=== PATIENT | male | born 1955 | race Caucasian/White ===

== ENCOUNTER 2020-03-06 06:54 | Inpatient (IN) ==
[2020-03-06] MEDS ORDERED: GLUCAGON 1 MG VIAL IM PRN (12:24)
[2020-03-06] MEDS ORDERED: DEXTROSE 50% 25 GM/50 ML VIAL IV PRN (12:24)
[2020-03-06] MEDS ORDERED: HEPARIN DRIP 25,000 UNITS/500 ML PREMIX IV SCH (13:00)
[2020-03-07] MEDS ORDERED: CHLORHEXIDINE 0.12% ORAL RINSE 60 ML BOTTLE SWISH/SPIT SCH (09:00)
[2020-03-07] MEDS: HEPARIN DRIP 25,000 UNITS/500 ML PREMIX IV SCH ×2 (15:05→22:20)
[2020-03-07] MEDS: CHLORHEXIDINE 0.12% ORAL RINSE 60 ML BOTTLE SWISH/SPIT SCH ×2 (15:05→21:05)
[2020-03-07 16:06] LABS: Basophils # 0.1 10*3/uL (0.0-0.2); Basophils % 1.2 % (0.0-0.8); Eosinophils # 0.5 10*3/uL (0.0-0.87); Eosinophils % 4.3 % (0.00-10.9); Hemoglobin 13.7 GM/DL (14.0-18.0); Immature Granulocytes % 0.4 %; Immature Granulocytes Absolute 0.05 #; Lymphocytes # 2.3 10*3/uL (1.4-4.0); Lymphocytes % 20.1 % (21.2-54.2); Mean Corpuscular HGB Conc 34.3 GM/DL (32-36); Mean Corpuscular Volume 96.6 FL (87-102); Mean Platelet Volume 9.2 FL (9.6-12.0); Monocytes % 8.6 % (1.7-12.7); Neutrophils % 65.4 % (38.7-73.9); Platelet Count 187 T/CUMM (130-400); Red Blood Count 4.14 MC/CUMM (3.8-5.5); Red Cell Distribution Width 12.6 % (9.3-17.3); White Blood Count 11.7 T/CUMM (4-12)
[2020-03-07 16:22] LABS: INR 0.9; PT Patient Result 10.2 SECS (9.8-11.9); Partial Thromboplastin Time 36.7 SECS (23.9-33.8)
[2020-03-07 16:29] LABS: Albumin 3.7 G/DL (3.4-5.0); Bilirubin,Total 0.5 MG/DL (0.2-1.0); Calcium 8.5 MG/DL (8.5-10.1); Osmolality,Calculated 277.5 MOS/KG (273-304); Total Protein 6.9 G/DL (6.4-8.3)
[2020-03-08 05:51] LABS: Basophils # 0.1 10*3/uL (0.0-0.2); Basophils % 0.9 % (0.0-0.8); Eosinophils # 0.6 10*3/uL (0.0-0.87); Eosinophils % 4.8 % (0.00-10.9); Hemoglobin 13.3 GM/DL (14.0-18.0); Immature Granulocytes % 0.6 %; Immature Granulocytes Absolute 0.07 #; Lymphocytes # 2.5 10*3/uL (1.4-4.0); Lymphocytes % 21.8 % (21.2-54.2); Mean Corpuscular HGB Conc 33.3 GM/DL (32-36); Mean Corpuscular Volume 96.6 FL (87-102); Monocytes % 10.8 % (1.7-12.7); Neutrophils % 61.1 % (38.7-73.9); Platelet Count 179 T/CUMM (130-400); Red Blood Count 4.14 MC/CUMM (3.8-5.5); Red Cell Distribution Width 12.3 % (9.3-17.3); White Blood Count 11.6 T/CUMM (4-12)
[2020-03-08 06:16] LABS: Calcium 8.5 MG/DL (8.5-10.1); Osmolality,Calculated 278.4 MOS/KG (273-304)
[2020-03-08] MEDS: ESCITALOPRAM 10 MG TABLET PO SCH (08:21)
[2020-03-08] MEDS: CHLORHEXIDINE 4% SOLN 118 ML BOTTLE TOP SCH ×2 (08:22→15:38)
[2020-03-08] MEDS: CHLORHEXIDINE 0.12% ORAL RINSE 60 ML BOTTLE SWISH/SPIT SCH ×2 (08:22→21:20)
[2020-03-08] MEDS ORDERED: PANTOPRAZOLE 40 MG TABLET PO ONE (10:38)
[2020-03-08] MEDS ORDERED: DIAZEPAM 5 MG TABLET PO ONE (10:38)
[2020-03-08] MEDS ORDERED: CLORAZEPATE 3.75 MG TABLET PO PRN (11:42)
[2020-03-08] MEDS ORDERED: SODIUM CHLORIDE 0.9% 1,000 ML IV SCH (12:30)
[2020-03-08] MEDS: HEPARIN DRIP 25,000 UNITS/500 ML PREMIX IV SCH (13:22)
[2020-03-08] MEDS ORDERED: ATORVASTATIN 80 MG TABLET PO SCH (21:00)
[2020-03-09] MEDS: CHLORHEXIDINE 4% SOLN 118 ML BOTTLE TOP SCH (04:41)
[2020-03-09] MEDS ORDERED: VANCOMYCIN 1,000 MG VIAL ONE (04:54)
[2020-03-09] MEDS ORDERED: PAPAVERINE 60 MG/2 ML VIAL ONE (04:54)
[2020-03-09] MEDS ORDERED: VANCOMYCIN 500 MG VIAL ONE (04:54)
[2020-03-09] MEDS ORDERED: CEFUROXIME INJ 1,500 MG in SYRINGE 1 EACH IV ONE (05:00)
[2020-03-09] MEDS ORDERED: SUFentanil 250 MCG/5 ML AMP ONE ×2 (05:52)
[2020-03-09] MEDS ORDERED: DIAZEPAM 5 MG TABLET PO ONE (06:00)
[2020-03-09] MEDS ORDERED: PANTOPRAZOLE 40 MG TABLET PO ONE (06:00)
[2020-03-09] MEDS ORDERED: MIDAZOLAM 10 MG/2 ML VIAL ONE ×3 (06:11→09:17)
[2020-03-09] MEDS ORDERED: AMINOCAPROIC ACID 5,000 MG/20 ML VIAL ONE ×5 (06:13→09:20)
[2020-03-09] MEDS ORDERED: SUCCINYLCHOLINE 200 MG/10 ML VIAL ONE (06:14)
[2020-03-09] MEDS ORDERED: LIDOCAINE 2% 5 ML VIAL ONE ×2 (06:14→10:12)
[2020-03-09] MEDS ORDERED: VECURONIUM 10 MG VIAL IV ONE ×3 (06:14→09:17)
[2020-03-09] MEDS ORDERED: ETOMIDATE 40 MG/20 ML VIAL IV ONE (06:14)
[2020-03-09] MEDS ORDERED: PHENYLEPHRINE DRIP 20 MG/250 ML PREMIX IV ONE (06:15)
[2020-03-09] MEDS ORDERED: SODIUM CHLORIDE 0.9% 100 ML IV ONE ×3 (06:15→11:00)
[2020-03-09] MEDS ORDERED: NITROGLYCERIN DRIP 50 MG/250 ML BOTTLE IV ONE (06:15)
[2020-03-09] MEDS ORDERED: HEPARIN/NACL 0.9% 2 UNITS/ML 500 ML IV ONE (06:15)
[2020-03-09] MEDS ORDERED: LACTATED RINGERS 1,000 ML IV ONE (06:15)
[2020-03-09] MEDS ORDERED: SODIUM CHLORIDE 0.9% 250 ML IV ONE (06:15)
[2020-03-09] MEDS ORDERED: SODIUM CHLORIDE 0.9% 1,000 ML IV ONE (06:15)
[2020-03-09 07:45] LABS: ABG Base Excess 1.3 MMOL/L (-2.5-2.5); ABG HCO3 25.6 MMOL/L (20-26); ABG Oxygen Saturation 99.6 % (95-100); ABG PCO2 42.9 MM HG (35-48); ABG PH 7.397 (7.35-7.45); ABG TCO2 23.1 MMOL/L (23-27); Glucose Heart Surgery 99 MG/DL (74-106); Ionized Calcium Arterial 1.16 MMOL/L (1.21-1.46); PCO2 Patient Temp Arterial 42.9 MMHG; PH Patient Temp Arterial 7.397; Patient Temperature 37 CELCIUS; Potassium Heart/CVR 4.2 MMOL/L (3.5-5.1); Sodium Heart/CVR 140 MMOL/L (135-145)
[2020-03-09 08:53] LABS: Mucus,Urine Occasional /LPF (Occasional); RBC,Urine <1 /HPF (0-4); Squamous Epithelial Cell,Urine Occasional /HPF (0-10); WBC,Urine <1 /HPF (0-6)
[2020-03-09 08:54] LABS: Urine Appearance Clear (Clear); Urine Color Yellow (Yellow)
[2020-03-09 08:55] LABS: Bilirubin,Urine Negative (Negative); Blood, Urine Negative (Negative); Glucose,Urine (UA) Negative (Negative); Ketones,Urine Negative (Negative); Nitrite,Urine Negative (Negative); Protein,Urine Negative; Urine Urobilinogen < 2.0 EU/DL (0.2-1.0)
[2020-03-09 09:16] LABS: Hematocrit Heart Surgery 28.1 PERCENT (42-52); PCO2 Patient Temp Venous 41.2 MM HG; PH Patient Temp Venous 7.42; PO2 Patient Temp Venous 40.2 MM HG; Potassium Heart/CVR 4.7 MMOL/L (3.5-5.1); VBG Base Excess 2.2 MEQ/L (0-4); VBG HCO3 26.1 MEQ/L (24-28); VBG Oxygen Saturation 77.5 %; VBG PCO2 43.3 MMHG (41-51); VBG PH 7.406; VBG PO2 43.1 MMHG (17-40)
[2020-03-09] MEDS ORDERED: PHENYLEPHRINE 1 MG/10 ML SYRINGE IV ONE (09:20)
[2020-03-09] MEDS ORDERED: CALCIUM CHLORIDE 1,000 MG/10 ML VIAL IV ONE (09:39)
[2020-03-09] MEDS: ESCITALOPRAM 10 MG TABLET PO SCH (09:39)
[2020-03-09] MEDS: CHLORHEXIDINE 0.12% ORAL RINSE 60 ML BOTTLE SWISH/SPIT SCH ×2 (09:39→21:43)
[2020-03-09] MEDS: HEPARIN DRIP 25,000 UNITS/500 ML PREMIX IV SCH (09:40)
[2020-03-09] MEDS ORDERED: NITROPRUSSIDE 50 MG/2 ML VIAL ONE (09:43)
[2020-03-09] MEDS ORDERED: ALBUMIN 5% 12.5 GM/250 ML VIAL IV ONE (09:44)
[2020-03-09] MEDS ORDERED: POTASSIUM CHLORIDE RIDER 100 ML IV ONE (09:44)
[2020-03-09] MEDS ORDERED: PHENYLEPHRINE DRIP 40 MG/250 ML PREMIX IV ONE (09:44)
[2020-03-09 09:50] LABS: Hematocrit Heart Surgery 31.2 PERCENT (42-52); Hemoglobin Heart Surgery 10.1 G/DL (14.0-18.0); PH Patient Temp Venous 7.41; PO2 Patient Temp Venous 33.8 MM HG; Potassium Heart/CVR 5.1 MMOL/L (3.5-5.1); VBG Base Excess 2.4 MEQ/L (0-4); VBG HCO3 25.9 MEQ/L (24-28); VBG Oxygen Saturation 62.9 %; VBG PH 7.41; VBG PO2 33.8 MMHG (17-40)
[2020-03-09] MEDS ORDERED: fentaNYL 250 MCG/5 ML VIAL ONE (09:58)
[2020-03-09] MEDS ORDERED: methylPREDNISolone SOD SUC 1,000 MG/8 ML VIAL ONE (10:12)
[2020-03-09] MEDS ORDERED: DEXTROSE 5% KCL 20 MEQ 20 MEQ/1,000 ML BAG IV ONE (10:12)
[2020-03-09] MEDS ORDERED: MAGNESIUM SULFATE 5 GM/10 ML VIAL IV ONE (10:12)
[2020-03-09] MEDS ORDERED: ALBUMIN 25% 25 GM/100 ML VIAL IV ONE (10:12)
[2020-03-09] MEDS ORDERED: SODIUM BICARBONATE 50 MEQ/50 ML VIAL IV ONE (10:13)
[2020-03-09] MEDS ORDERED: MANNITOL 100 GM/500 ML BAG IV ONE (10:13)
[2020-03-09] MEDS ORDERED: FUROSEMIDE 20 MG/2 ML VIAL ONE (10:13)
[2020-03-09] MEDS ORDERED: PROTAMINE SULFATE 250 MG/25 ML VIAL IV ONE (10:13)
[2020-03-09] MEDS ORDERED: HEPARIN 10,000 UNIT/10 ML VIAL ONE (10:13)
[2020-03-09 10:20] LABS: ABG Base Excess 2.3 MMOL/L (-2.5-2.5); ABG HCO3 26.5 MMOL/L (20-26); ABG PCO2 37.5 MM HG (35-48); ABG PH 7.452 (7.35-7.45); ABG TCO2 23.4 MMOL/L (23-27); Glucose Heart Surgery 195 MG/DL (74-106); Hematocrit Heart Surgery 34.3 PERCENT (42-52); Hemoglobin Heart Surgery 11.1 G/DL (14.0-18.0); Ionized Calcium Arterial 1.18 MMOL/L (1.21-1.46); PCO2 Patient Temp Arterial 37.5 MMHG; PH Patient Temp Arterial 7.452; Patient Temperature 37 CELCIUS; Potassium Heart/CVR 3.8 MMOL/L (3.5-5.1); Sodium Heart/CVR 135 MMOL/L (135-145)
[2020-03-09] MEDS ORDERED: VECURONIUM 10 MG VIAL IV PRN ×2 (10:42)
[2020-03-09] MEDS ORDERED: MORPHINE 10 MG/1 ML VIAL IV PRN (10:42)
[2020-03-09] MEDS ORDERED: DEXTROSE 50% 25 GM/50 ML VIAL IV PRN ×2 (10:42)
[2020-03-09] MEDS ORDERED: INSULIN REGULAR 100 UNIT/ML IV PRN (10:42)
[2020-03-09] MEDS ORDERED: CHLORHEXIDINE 4% SOLN 118 ML BOTTLE TOP PRN (10:42)
[2020-03-09] MEDS ORDERED: ONDANSETRON 4 MG/2 ML VIAL IV PRN (10:42)
[2020-03-09] MEDS ORDERED: INSULIN REGULAR 100 UNIT/ML IV ONE (10:42)
[2020-03-09] MEDS ORDERED: LACTATED RINGERS 250 ML IV PRN (10:42)
[2020-03-09] MEDS ORDERED: MAGNESIUM SULF RIDER 2 GM in PREMIX 1 EACH IV PRN (10:42)
[2020-03-09] MEDS ORDERED: PHENYLEPHRINE DRIP 40 MG/250 ML PREMIX IV PRN (10:42)
[2020-03-09] MEDS ORDERED: POTASSIUM CHLORIDE RIDER 10 MEQ in PREMIX 1 EACH IV PRN (10:42)
[2020-03-09] MEDS ORDERED: CALCIUM CHLORIDE 1,000 MG/10 ML SYRINGE IV PRN (10:42)
[2020-03-09] MEDS ORDERED: NITROPRUSSIDE 100 MG in DEXTROSE 5% 250 ML IV PRN (10:42)
[2020-03-09] MEDS ORDERED: ACETAMINOPHEN 650 MG SUPP RECTAL PRN (10:42)
[2020-03-09] MEDS ORDERED: MIDAZOLAM 2 MG/2 ML VIAL IV PRN (10:42)
[2020-03-09] MEDS ORDERED: MIDAZOLAM 10 MG/2 ML VIAL IV PRN (10:42)
[2020-03-09] MEDS ORDERED: MAGNESIUM SULF RIDER 4 GM in PREMIX 1 EACH IV PRN (10:42)
[2020-03-09] MEDS ORDERED: SEVOFLURANE 1 UNIT/15 MINUTE INH ONE ×15 (10:59)
[2020-03-09] MEDS ORDERED: INSULIN REGULAR DRIP 100 ML IV SCH (11:00)
[2020-03-09] MEDS ORDERED: PROTAMINE SULFATE 50 MG/5 ML VIAL IV ONE (11:03)
[2020-03-09] MEDS: SODIUM CHLORIDE 0.45% 1,000 ML IV SCH ×2 (11:15)
[2020-03-09] MEDS: LACTATED RINGERS 1,000 ML IV PRN ×3 (12:17→15:10)
[2020-03-09 12:20] LABS: ABG Base Excess 5.7 MMOL/L (-2.5-2.5); ABG HCO3 29.6 MMOL/L (20-26); ABG Oxygen Saturation 97.1 % (95-100); ABG PCO2 42.1 MM HG (35-48); ABG PH 7.463 (7.35-7.45); ABG PO2 86.9 MM HG (80-95); ABG TCO2 26.4 MMOL/L (23-27); Glucose Heart Surgery 134 MG/DL (74-106); Hematocrit Heart Surgery 38.1 PERCENT (42-52); Hemoglobin Heart Surgery 12.4 G/DL (14.0-18.0); Potassium Heart/CVR 3.4 MMOL/L (3.5-5.1)
[2020-03-09 12:23] LABS: Basophils # 0.1 10*3/uL (0.0-0.2); Basophils % 0.6 % (0.0-0.8); Eosinophils # 0.2 10*3/uL (0.0-0.87); Eosinophils % 1.4 % (0.00-10.9); Hematocrit 34.5 VOL% (42.0-52.0); Hemoglobin 12.1 GM/DL (14.0-18.0); Immature Granulocytes % 0.6 %; Immature Granulocytes Absolute 0.09 #; Lymphocytes # 1.1 10*3/uL (1.4-4.0); Lymphocytes % 7.6 % (21.2-54.2); Mean Corpuscular HGB Conc 35.1 GM/DL (32-36); Mean Corpuscular Volume 93.8 FL (87-102); Mean Platelet Volume 9.5 FL (9.6-12.0); Monocytes % 6.5 % (1.7-12.7); Neutrophils % 83.3 % (38.7-73.9); Platelet Count 199 T/CUMM (130-400); Red Blood Count 3.68 MC/CUMM (3.8-5.5); Red Cell Distribution Width 12.1 % (9.3-17.3); White Blood Count 13.9 T/CUMM (4-12)
[2020-03-09] MEDS: POTASSIUM CHLORIDE RIDER 20 MEQ in PREMIX 1 EACH IV PRN ×4 (12:28→16:05)
[2020-03-09 12:37] LABS: INR 1.2; PT Patient Result 12.5 SECS (9.8-11.9); Partial Thromboplastin Time 26.8 SECS (23.9-33.8)
[2020-03-09 12:53] LABS: Albumin 4.3 G/DL (3.4-5.0); Bilirubin,Total 1.4 MG/DL (0.2-1.0); CKMB % 2.7 %; Calcium 9.1 MG/DL (8.5-10.1); Osmolality,Calculated 281.4 MOS/KG (273-304); Total Protein 7.5 G/DL (6.4-8.3)
[2020-03-09 13:02] LABS: Troponin I 5.99 NG/ML (0.00-0.045)
[2020-03-09] MEDS: ALBUMIN 5% 12.5 GM in PREMIX 1 EACH IV PRN ×3 (13:48→15:44)
[2020-03-09 13:50] LABS: ABG Base Excess 4.4 MMOL/L (-2.5-2.5); ABG HCO3 28.4 MMOL/L (20-26); ABG Oxygen Saturation 98.5 % (95-100); ABG PCO2 49.4 MM HG (35-48); ABG PH 7.395 (7.35-7.45); ABG TCO2 26.9 MMOL/L (23-27); Glucose Heart Surgery 131 MG/DL (74-106); Hematocrit Heart Surgery 36.5 PERCENT (42-52); Hemoglobin Heart Surgery 11.9 G/DL (14.0-18.0); Potassium Heart/CVR 4.2 MMOL/L (3.5-5.1)
[2020-03-09 15:53] LABS: ABG Base Excess 4.7 MMOL/L (-2.5-2.5); ABG HCO3 28.6 MMOL/L (20-26); ABG Oxygen Saturation 97.8 % (95-100); ABG PCO2 40.3 MM HG (35-48); ABG PH 7.462 (7.35-7.45); ABG PO2 96.1 MM HG (80-95); ABG TCO2 25.7 MMOL/L (23-27); Glucose Heart Surgery 149 MG/DL (74-106); Hematocrit Heart Surgery 34.3 PERCENT (42-52); Hemoglobin Heart Surgery 11.1 G/DL (14.0-18.0); Potassium Heart/CVR 4.1 MMOL/L (3.5-5.1)
[2020-03-09] MEDS: INSULIN REGULAR 100 UNIT/ML SUBCUT SCH ×2 (16:03→20:02)
[2020-03-09 17:03] LABS: ABG Base Excess 4.1 MMOL/L (-2.5-2.5); ABG HCO3 28.1 MMOL/L (20-26); ABG Oxygen Saturation 96.1 % (95-100); ABG PCO2 42.3 MM HG (35-48); ABG PH 7.439 (7.35-7.45); ABG PO2 80.8 MM HG (80-95); ABG TCO2 25.8 MMOL/L (23-27); Glucose Heart Surgery 155 MG/DL (74-106); Hemoglobin Heart Surgery 10.7 G/DL (14.0-18.0); Potassium Heart/CVR 4.4 MMOL/L (3.5-5.1)
[2020-03-09] MEDS: CEFUROXIME INJ 1,500 MG in SODIUM CHLORIDE 0.9% 100 ML IV SCH (18:03)
[2020-03-09 18:17] LABS: ABG Base Excess 3.8 MMOL/L (-2.5-2.5); ABG HCO3 27.8 MMOL/L (20-26); ABG Oxygen Saturation 97.4 % (95-100); ABG PCO2 41.6 MM HG (35-48); ABG PH 7.441 (7.35-7.45); ABG PO2 90.9 MM HG (80-95); ABG TCO2 25.5 MMOL/L (23-27); Glucose Heart Surgery 150 MG/DL (74-106); Hematocrit Heart Surgery 32.7 PERCENT (42-52); Hemoglobin Heart Surgery 10.6 G/DL (14.0-18.0); Potassium Heart/CVR 4.3 MMOL/L (3.5-5.1)
[2020-03-09] MEDS ORDERED: FUROSEMIDE 40 MG/4 ML VIAL IV PRN (18:30)
[2020-03-09 18:47] LABS: CKMB % 1.8 %
[2020-03-09 18:56] LABS: Troponin I 5.67 NG/ML (0.00-0.045)
[2020-03-09 19:44] LABS: ABG Base Excess 3.7 MMOL/L (-2.5-2.5); ABG HCO3 27.7 MMOL/L (20-26); ABG Oxygen Saturation 97.7 % (95-100); ABG PCO2 41.1 MM HG (35-48); ABG PH 7.443 (7.35-7.45); ABG PO2 97.3 MM HG (80-95); ABG TCO2 25.3 MMOL/L (23-27); Glucose Heart Surgery 147 MG/DL (74-106); Hematocrit Heart Surgery 32.6 PERCENT (42-52); Hemoglobin Heart Surgery 10.6 G/DL (14.0-18.0); Potassium Heart/CVR 4.2 MMOL/L (3.5-5.1)
[2020-03-09 21:23] LABS: ABG Base Excess 3.3 MMOL/L (-2.5-2.5); ABG HCO3 27.3 MMOL/L (20-26); ABG Oxygen Saturation 96.5 % (95-100); ABG PCO2 45.6 MM HG (35-48); ABG PH 7.405 (7.35-7.45); ABG PO2 97.7 MM HG (80-95); ABG TCO2 25.8 MMOL/L (23-27); Glucose Heart Surgery 144 MG/DL (74-106); Hematocrit Heart Surgery 32.8 PERCENT (42-52); Hemoglobin Heart Surgery 10.6 G/DL (14.0-18.0); Potassium Heart/CVR 4.3 MMOL/L (3.5-5.1)
[2020-03-09 22:47] LABS: ABG Base Excess 3.2 MMOL/L (-2.5-2.5); ABG HCO3 27.2 MMOL/L (20-26); ABG Oxygen Saturation 96.9 % (95-100); ABG PCO2 45.8 MM HG (35-48); ABG PH 7.402 (7.35-7.45); ABG PO2 92.3 MM HG (80-95); ABG TCO2 25.6 MMOL/L (23-27); Glucose Heart Surgery 144 MG/DL (74-106); Hematocrit Heart Surgery 33.6 PERCENT (42-52); Hemoglobin Heart Surgery 10.9 G/DL (14.0-18.0); Potassium Heart/CVR 4.2 MMOL/L (3.5-5.1)
[2020-03-09 23:34] LABS: ABG Base Excess 3.8 MMOL/L (-2.5-2.5); ABG HCO3 28.9 MMOL/L (20-26); ABG Oxygen Saturation 95.1 % (95-100); ABG PCO2 45.5 MM HG (35-48); ABG PO2 81.7 MM HG (80-95); ABG TCO2 30.2 MMOL/L (23-27); Glucose Heart Surgery 150 MG/DL (74-106); Hemoglobin Heart Surgery 11.2 G/DL (14.0-18.0); Potassium Heart/CVR 4.1 MMOL/L (3.5-5.1)
[2020-03-09] MEDS: MORPHINE 4 MG/1 ML VIAL IV PRN (23:41)
[2020-03-10] MEDS: INSULIN REGULAR 100 UNIT/ML SUBCUT SCH ×3 (00:11→08:22)
[2020-03-10] MEDS: MORPHINE 4 MG/1 ML VIAL IV PRN ×2 (02:48→08:49)
[2020-03-10 04:29] LABS: ABG Base Excess 2.6 MMOL/L (-2.5-2.5); ABG HCO3 26.7 MMOL/L (20-26); ABG Oxygen Saturation 98.1 % (95-100); ABG PCO2 45.6 MM HG (35-48); ABG PH 7.396 (7.35-7.45); ABG TCO2 25.1 MMOL/L (23-27); Glucose Heart Surgery 139 MG/DL (74-106); Hematocrit Heart Surgery 34.5 PERCENT (42-52); Hemoglobin Heart Surgery 11.2 G/DL (14.0-18.0); Potassium Heart/CVR 4.2 MMOL/L (3.5-5.1)
[2020-03-10 04:42] LABS: Basophils % 0.1 % (0.0-0.8); Hematocrit 30.2 VOL% (42.0-52.0); Hemoglobin 10.5 GM/DL (14.0-18.0); Immature Granulocytes % 0.7 %; Immature Granulocytes Absolute 0.13 #; Lymphocytes # 0.7 10*3/uL (1.4-4.0); Lymphocytes % 3.9 % (21.2-54.2); Mean Corpuscular HGB Conc 34.8 GM/DL (32-36); Mean Corpuscular Volume 94.4 FL (87-102); Mean Platelet Volume 9.6 FL (9.6-12.0); Monocytes % 7.7 % (1.7-12.7); Neutrophils % 87.6 % (38.7-73.9); Platelet Count 205 T/CUMM (130-400); Red Cell Distribution Width 12.1 % (9.3-17.3); White Blood Count 17.5 T/CUMM (4-12)
[2020-03-10 05:00] LABS: CKMB % 1.5 %
[2020-03-10 05:05] LABS: Band Neutrophils 1 % (0-10); Eosinophils 2 % (0-10); Lymphocytes 4 % (20-55); Platelet Estimate Normal; Segmented Neutrophils 90 % (50-85); Total Cells Counted 100
[2020-03-10 05:22] LABS: Troponin I 3.4 NG/ML (0.00-0.045)
[2020-03-10 05:24] LABS: Alanine Aminotransferase 42 U/L (16-61); Albumin 4.1 G/DL (3.4-5.0); Alkaline Phosphatase 43 U/L (45-117); Aspartate Amino Transferase 36 U/L (0-37); Bilirubin,Direct < 0.100 MG/DL (0.0-0.20); Blood Urea Nitrogen 17 MG/DL (7-18); Calcium 8.3 MG/DL (8.5-10.1); Estimated Glom Filtration Rate 109 ML/MIN; Glucose 132 MG/DL (74-106); Osmolality,Calculated 278.7 MOS/KG (273-304); Total Protein 6.9 G/DL (6.4-8.3)
[2020-03-10] MEDS: CEFUROXIME INJ 1,500 MG in SODIUM CHLORIDE 0.9% 100 ML IV SCH (06:37)
[2020-03-10] MEDS: CHLORHEXIDINE 0.12% ORAL RINSE 60 ML BOTTLE SWISH/SPIT SCH ×2 (08:22→20:55)
[2020-03-10] MEDS ORDERED: KETOROLAC 30 MG/1 ML VIAL IV ONE (09:47)
[2020-03-10] MEDS: SODIUM CHLORIDE 0.45% 1,000 ML IV SCH ×2 (11:03)
[2020-03-10] MEDS ORDERED: ACETAMINOPHEN 325 MG TABLET PO PRN (11:04)
[2020-03-10] MEDS ORDERED: SODIUM CHLOR 0.45% KCL 20 MEQ 20 MEQ/1,000 ML BAG IV SCH (11:04)
[2020-03-10] MEDS ORDERED: POTASSIUM CHLORIDE 20 MEQ TABLET PO PRN (11:04)
[2020-03-10] MEDS ORDERED: GLUCAGON 1 MG VIAL IM PRN ×3 (11:04→13:42)
[2020-03-10] MEDS ORDERED: oxyCODONE/ACETAMINOPHEN 5-325 MG TABLET PO PRN (11:04)
[2020-03-10] MEDS ORDERED: MAGNESIUM SULF RIDER 2 GM in PREMIX 1 EACH IV PRN (11:04)
[2020-03-10] MEDS ORDERED: MAGNESIUM HYDROXIDE SUSP 30 ML UDCUP PO PRN (11:04)
[2020-03-10] MEDS ORDERED: ONDANSETRON 4 MG/2 ML VIAL IV PRN (11:04)
[2020-03-10] MEDS ORDERED: MAGNESIUM SULF RIDER 4 GM in PREMIX 1 EACH IV PRN (11:04)
[2020-03-10] MEDS ORDERED: ALUMINUM/MAGNES/SIMETH MAX STR 30 ML UDCUP PO PRN (11:04)
[2020-03-10] MEDS ORDERED: DEXTROSE 50% 25 GM/50 ML VIAL IV PRN ×3 (11:04→13:42)
[2020-03-10] MEDS ORDERED: ZALEPLON 5 MG CAPSULE PO PRN (11:04)
[2020-03-10] MEDS: CLOPIDOGREL 75 MG TABLET PO SCH (14:30)
[2020-03-10] MEDS: KETOROLAC 30 MG/1 ML VIAL IV SCH ×3 (14:30→22:25)
[2020-03-10] MEDS: ATORVASTATIN 80 MG TABLET PO SCH (20:54)
[2020-03-11] MEDS: KETOROLAC 30 MG/1 ML VIAL IV SCH ×4 (05:18→22:14)
[2020-03-11] MEDS ORDERED: FUROSEMIDE 40 MG/4 ML VIAL IV ONE (06:00)
[2020-03-11 06:12] LABS: Basophils % 0.3 % (0.0-0.8); Eosinophils # 0.1 10*3/uL (0.0-0.87); Eosinophils % 0.8 % (0.00-10.9); Hematocrit 29.2 VOL% (42.0-52.0); Hemoglobin 9.7 GM/DL (14.0-18.0); Immature Granulocytes % 0.7 %; Immature Granulocytes Absolute 0.09 #; Lymphocytes # 1.7 10*3/uL (1.4-4.0); Lymphocytes % 13.9 % (21.2-54.2); Mean Corpuscular HGB Conc 33.2 GM/DL (32-36); Mean Corpuscular Volume 98.6 FL (87-102); Mean Platelet Volume 10.1 FL (9.6-12.0); Neutrophils % 72.3 % (38.7-73.9); Platelet Count 186 T/CUMM (130-400); Red Blood Count 2.96 MC/CUMM (3.8-5.5); Red Cell Distribution Width 12.2 % (9.3-17.3)
[2020-03-11 06:28] LABS: Alanine Aminotransferase 35 U/L (16-61); Albumin 3.7 G/DL (3.4-5.0); Alkaline Phosphatase 42 U/L (45-117); Aspartate Amino Transferase 21 U/L (0-37); Bilirubin,Indirect 0.8 MG/DL (0.0-1.0); Blood Urea Nitrogen 25 MG/DL (7-18); Calcium 7.9 MG/DL (8.5-10.1); Estimated Glom Filtration Rate 99 ML/MIN; Glucose 91 MG/DL (74-106); Osmolality,Calculated 273.1 MOS/KG (273-304); Total Protein 6.4 G/DL (6.4-8.3)
[2020-03-11] MEDS: DOCUSATE SODIUM 100 MG CAPSULE PO SCH (11:03)
[2020-03-11] MEDS: CLOPIDOGREL 75 MG TABLET PO SCH (11:03)
[2020-03-11] MEDS: ASPIRIN EC 325 MG TABLET PO SCH (11:03)
[2020-03-11] MEDS: ESCITALOPRAM 10 MG TABLET PO SCH (11:03)
[2020-03-11] MEDS: METOPROLOL TARTRATE 25 MG TABLET PO SCH (11:03)
[2020-03-11] MEDS: PANTOPRAZOLE 40 MG TABLET PO SCH (11:03)
[2020-03-11] MEDS: CHLORHEXIDINE 0.12% ORAL RINSE 60 ML BOTTLE SWISH/SPIT SCH ×2 (11:04→20:46)
[2020-03-11] MEDS: FERROUS SULFATE 325 MG TABLET PO SCH (11:07)
[2020-03-11] MEDS: ATORVASTATIN 80 MG TABLET PO SCH (20:46)
[2020-03-12] MEDS: KETOROLAC 30 MG/1 ML VIAL IV SCH ×4 (04:52→22:14)
[2020-03-12 05:56] LABS: Basophils # 0.1 10*3/uL (0.0-0.2); Basophils % 0.8 % (0.0-0.8); Eosinophils # 0.4 10*3/uL (0.0-0.87); Eosinophils % 3.5 % (0.00-10.9); Hematocrit 30.3 VOL% (42.0-52.0); Immature Granulocytes % 1.1 %; Immature Granulocytes Absolute 0.13 #; Lymphocytes # 1.8 10*3/uL (1.4-4.0); Mean Platelet Volume 10.2 FL (9.6-12.0); Neutrophils % 66.6 % (38.7-73.9); Platelet Count 216 T/CUMM (130-400); Red Blood Count 3.06 MC/CUMM (3.8-5.5); Red Cell Distribution Width 12.2 % (9.3-17.3); White Blood Count 11.5 T/CUMM (4-12)
[2020-03-12 06:27] LABS: Alanine Aminotransferase 38 U/L (16-61); Albumin 3.6 G/DL (3.4-5.0); Alkaline Phosphatase 49 U/L (45-117); Aspartate Amino Transferase 23 U/L (0-37); Bilirubin,Indirect 0.3 MG/DL (0.0-1.0); Blood Urea Nitrogen 26 MG/DL (7-18); Calcium 8.3 MG/DL (8.5-10.1); Estimated Glom Filtration Rate 126 ML/MIN; Glucose 94 MG/DL (74-106); Osmolality,Calculated 277.8 MOS/KG (273-304); Total Protein 6.9 G/DL (6.4-8.3)
[2020-03-12 06:29] LABS: Troponin I 0.768 NG/ML (0.00-0.045)
[2020-03-12] MEDS: PANTOPRAZOLE 40 MG TABLET PO SCH (09:27)
[2020-03-12] MEDS: METOPROLOL TARTRATE 25 MG TABLET PO SCH (09:27)
[2020-03-12] MEDS: DOCUSATE SODIUM 100 MG CAPSULE PO SCH (09:27)
[2020-03-12] MEDS: ESCITALOPRAM 10 MG TABLET PO SCH (09:27)
[2020-03-12] MEDS: CHLORHEXIDINE 0.12% ORAL RINSE 60 ML BOTTLE SWISH/SPIT SCH ×2 (09:28→21:45)
[2020-03-12] MEDS: CLOPIDOGREL 75 MG TABLET PO SCH (09:28)
[2020-03-12] MEDS: FERROUS SULFATE 325 MG TABLET PO SCH (09:28)
[2020-03-12] MEDS: ASPIRIN EC 325 MG TABLET PO SCH (10:02)
[2020-03-12] MEDS: ATORVASTATIN 80 MG TABLET PO SCH (21:28)
[2020-03-13] MEDS: KETOROLAC 30 MG/1 ML VIAL IV SCH (04:31)
[2020-03-13 06:44] LABS: Calcium 8.2 MG/DL (8.5-10.1); Osmolality,Calculated 279.7 MOS/KG (273-304)
[2020-03-13] MEDS ORDERED: ASPIRIN EC 81 MG TABLET PO SCH (09:00)
[2020-03-13] MEDS: FERROUS SULFATE 325 MG TABLET PO SCH (09:09)
[2020-03-13] MEDS: PANTOPRAZOLE 40 MG TABLET PO SCH (09:09)
[2020-03-13] MEDS: DOCUSATE SODIUM 100 MG CAPSULE PO SCH (09:09)
[2020-03-13] MEDS: ESCITALOPRAM 10 MG TABLET PO SCH (09:09)
[2020-03-13] MEDS: CLOPIDOGREL 75 MG TABLET PO SCH (09:09)
[2020-03-13] MEDS: METOPROLOL TARTRATE 25 MG TABLET PO SCH (09:09)
[2020-03-13] MEDS: CHLORHEXIDINE 0.12% ORAL RINSE 60 ML BOTTLE SWISH/SPIT SCH (09:09)
[2020-03-13 11:28] VITALS: BP 118/64
== END 2020-03-13 11:12 | disposition home health service (06) | DRG 235 ==
LOC: N.ICU 03-07 13:00 → N.TELES 03-08 11:55 → N.CVR 03-09 10:39 → N.TELES 03-10 12:44